=== PATIENT | female | born 1975 ===

== ENCOUNTER 2020-09-18 06:01 | Day surgery (SDC) | payer OTHER ==
--- NOTE | 2020-09-17 16:06 | Short Stay Summary ---
Short Stay Documentation Date of service: 09/18/20 Narrative H&P: 45y/o with the complaint of a vulvar/vaginal mass. An attempt was made in the office for incision and drainage without success. The patient reports occasional vaginal discomfort secondary to the lesion. Patient has been reassessed/reevaluated/re-examined. H&P has been reviewed. No interval changes. - History Principal diagnosis: Vulvar cyst Past Medical History: No medical history Past Surgical History: No surgical history Social history: - Allergies and Medications Current Medications: Allergies No Known Allergies Allergy (Unverified 09/17/20 13:16) Home Medications Medication Instructions Recorded Confirmed Last Taken Type No Known Home Medications [No 09/17/20 09/17/20 Unknown History Reported Home Medications] Active Medications Lactated Ringer's (Lactated Ringers) 1,000 mls @ 125 mls/hr IV DIRECT SANTI - Physical exam General appearance: no acute distress Integumentary: no rash HEENT: Atraumatic Lungs: Clear to auscultation Breasts: deferred Heart: Regular rate Gastrointestinal: normal Female Genitourinary: deferred Rectal Exam: deferred - Brief post op/procedure progress note Date of procedure: 09/18/20 Pre-op diagnosis: Vulvar cyst Post-op diagnosis: same Procedure: Vulvar cyst excision Anesthesia: GETA Surgeon: GIOVANNI GAINES Estimated blood loss: other (100 mL) Pathology: list (Vulvar cyst) Specimen disposition: to lab Condition: stable - Hospital course Hospital course: The patient was admitted the day of surgery and underwent extraction of a vulvar cyst. Please see operative note for details of surgery. Postoperative course was uneventful. - Disposition Condition at discharge: Good Disposition: DC-01 TO HOME OR SELFCARE - Discharge Diagnoses (1) Vulvar cyst Status: Acute Short Stay Discharge Plan Activity: other (Pelvic rest for 2 weeks) Diet: regular Additional Instructions: Schedule follow-up with Dr. Gaines in 2 weeks Prescriptions: Ibuprofen [Motrin] 800 mg PO Q8HR PRN #30 tablet PRN Reason: Pain , Severe (7-10) HYDROcodone/APAP 5-325 [Rosamond 5/325] 1 each PO Q6HR PRN #15 tablet PRN Reason: Pain
[~2020-09-18 06:01] MED LIST: LACTATED RINGERS 1,000 ML IV SCH; ceFAZolin/Water 2 GM/20 ML 2 GM/20 ML SYRINGE IV NR
[2020-09-18] MEDS ORDERED: BACTERIOSTATIC SODIUM CHLORIDE 0.9% 30 ML VIAL INFILTRATI ONE (06:21)
[2020-09-18] MEDS ORDERED: MIDAZOLAM 2 MG/2 ML INJ IV NR (07:11)
[2020-09-18] MEDS ORDERED: ONDANSETRON 4 MG/2 ML INJ IV PRN (07:13)
[2020-09-18] MEDS ORDERED: HYDROmorphone 1 MG/1 ML INJ IV PRN ×2 (07:13)
--- NOTE | 2020-09-18 07:14 | Anesthesia Day of Surgery ---
Anesthesia Day of Surgery - Day of Surgery Patient Examined: Yes Patient H&P Reviewed: Yes Patient is NPO: Yes
--- NOTE | 2020-09-18 07:15 | Anesthesia Consultation ---
Anesthesia Consult and Med Hx Date of service: 09/18/20 - Airway Anesthetic Teeth Evaluation: Good ROM Head & Neck: Adequate Mental/Hyoid Distance: Adequate Mallampati Class: Class III Intubation Access Assessment: Probably Good - Pre-Operative Health Status ASA Pre-Surgery Classification: ASA2 Proposed Anesthetic Plan: General - Other Systems Hx Obesity: Yes
[2020-09-18] MEDS ORDERED: propofoL 200 MG/20 ML VIAL IV ONE (07:19)
[2020-09-18] MEDS ORDERED: fentaNYL 100 MCG/2 ML INJ ONE (07:19)
[2020-09-18] MEDS ORDERED: LIDOCAINE MPF (2%) 20 MG/1 ML VIAL 5 ML ONE (07:19)
[2020-09-18] MEDS ORDERED: SODIUM CHLORIDE 0.9% IRR 1,500 ML BOTTLE IR ONE (08:18)
--- NOTE | 2020-09-18 08:40 | Operative Report ---
Operative Report Operative Report: Date of procedure: September 18, 2020 Pre-operative diagnosis: Vulvar cyst Post-operative diagnosis: Same as above Procedure name(s): Excision of vulvar cyst Surgeon: Ewa Fairbanks M.D. Estimated blood loss: 100 mL Anesthesia: General tracheal anesthesia Findings Left vulvar cyst likely consistent with a varicosity Indication: 45-year-old -0-1-3 with a history of a left vulvar cyst. The patient reports enlargement of cyst periodically and occasional discomfort. Procedure The patient was taken to the operating room and given LMA as anesthesia. She is prepped and draped in a normal sterile fashion and placed in high lithotomy position. Exam under anesthesia was performed. Exam identified evidence of a left vulvar mass that was mobile. The vaginal mucosa was incised with the scalpel and the mucosal edges were retracted with Allis clamps. The Metzenbaum scissors were used in order to dissect the underlying connective tissue. The mass was grasped with a Radha. The mass was excised consistent with a likely varicosity. The underlying tissue was then reapproximated with 3-0 Vicryl in a running locked fashion. Pressure dressing was applied with a vaginal packing. An attempt was made to identify any right vulvar lesions without any significant findings. The patient was then successfully extubated and taken to the recovery room. All sponge laps and needle counts correct x2. Pathology findings of a hemorrhagic cyst versus varicosity.
[2020-09-18 09:50] VITALS: BP 107/51
--- NOTE | 2020-09-18 10:18 | Post Anesthesia Evaluation ---
- Post Anesthesia Evaluation Patient Participated: Yes Airway Patent: Yes Stable Respiratory Function: Yes Nausea/Vomiting: No Temp > 96.8F: Yes Pain Manageable: Yes Adequeate Hydration: Yes Anesthesia Complications: No Block Receding Appropriately: Not Applicable Patient on Ventilator: No
== END 2020-09-18 06:02 | disposition home or self-care (01) ==
LOC: OR 06:01
PROVIDERS: ATTEND Obstetrics & Gynecology
DX: N90.7 Vulvar cyst (principal); E66.9 Obesity, unspecified; Z79.899 Other long term (current) drug therapy; Z68.34 Body mass index [BMI] 34.0-34.9, adult
CPT/HCPCS: 11421; 81025; 88305; J0690; J2250; J2704; J3010; J7120